=== PATIENT | female | born 1995 | race Caucasian/White ===

== ENCOUNTER 2016-11-20 17:58 | Emergency (ER) | payer BC ==
[~2016-11-20] VITALS: Ht 154.9 cm; Wt 62.3 kg
[2016-11-20 19:19] LABS: BASOPHILS % (AUTO) 0 % (0-2); EOSINOPHILS # (AUTO) 0.5 10^3uL; EOSINOPHILS % (AUTO) 6 % (0-4); LYMPHOCYTES # (AUTO) 2.8 X10^3; MEAN CORPUSCULAR HEMOGLOBIN 30.6 PG (26.0-34.0); MEAN CORPUSCULAR HGB CONC 35.3 g/dL (31.0-37.0); MEAN CORPUSCULAR VOLUME 87 FL (80-100); MEAN PLATELET VOLUME 7.9 FL (6.0-9.5); MONOCYTES # (AUTO) 0.8 X10^3; MONOCYTES % (AUTO) 9 % (3-11); NEUTROPHILS # (AUTO) 4.7 X10^3; NEUTROPHILS % (AUTO) 53 % (51-67); PLATELET COUNT 245 10^3uL (150-450); WHITE BLOOD COUNT 8.86 10^3uL (4.0-11.0)
[2016-11-20 19:36] LABS: ALBUMIN 4.3 g/dL (3.4-5.0); ANION GAP 11.3 MEQ/L (3-15); TOTAL PROTEIN 6.9 g/dL (6.4-8.5)
[2016-11-20 20:53] VITALS: BP 109/62
== END 2016-11-20 20:55 | disposition home or self-care (01) ==
LOC: ED 18:00
DX: R55 Syncope and collapse (principal); E87.1 Hypo-osmolality and hyponatremia; E23.2 Diabetes insipidus
CPT/HCPCS: 36415; 80053; 84703; 85025; 99282

== ENCOUNTER 2016-11-22 10:28 | Emergency (ER) | payer BC ==
[~2016-11-22] VITALS: Ht 157.5 cm; Wt 66.3 kg
[~2016-11-22 10:28] MED LIST: AZIT500T2 PO; CPR500T PO; FLUO20CA42 PO; GFCD10B GT; HYDR-87 PO; MECL25TA PO; NF-DDA0.2T PO; PHEN-725 PO; [UNRECOGNIZED DRUG - CODE]
--- OUTSIDE RECORDS SUMMARY | 2016-11-22 10:36 | XMS REPORT | Continuity of Care Document ---
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 Phone [employer] Unavailable Unavailable Problems Problem Status Onset Date Classification Date Reported Comments Source No current problems or disability (context-dependent category) Active Problem 10/27/2015 [facility] Medications Medication Details Route Status Patient Instructions Ordering Provider Order Date Source desmopressin 0.2 mg oral tablet See Instructions, TAKE 4 TABLETS IN THE AM AND 4 TABLETS IN THE PM, # 720 tablet, Refill(s) 6, Pharmacy: [facility] </br>TAKE 4 TABLETS IN THE AM AND 4 TABLETS IN THE PM [facility] normal saline 250 mL 10/26/15 8:21:00 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, 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 [facility], Routine, IV, 250 mL Total Volume, rate=10 mL/hrMED ID: [id number] [facility] normal saline fluid bolus 10/26/15 8:21:00 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, ENDO [facility], Routine, 1,000 mL Total Volume, infuse over 0 hr(s), 1,000 mL , IV, IV Soln, Unscheduled, PRN Other (see comment)MED ID: [id number] [facility] naproxen 375 mg oral tablet 375 mg, PO, BID, prn during migranes </br>prn during migranes [facility] Topamax 25 mg oral tablet 50 mg=2 tablet, PO, qPM, # 60 tablet, Refill(s) 5, Pharmacy: [facility], [place]. [facility] ethinyl estradiol-norethindrone triphasic 20 mcg-30 mcg-35 mcg oral tablet 1 tablet, PO, qDay, take 21 days of active tablets then skip placebos and start the next pack, # 168 tablet, Refill(s) 2, Pharmacy: [facility] </br>take 21 days of active tablets then skip placebos and start the next pack Active [facility] Compazine 5 mg oral tablet 5 mg, PO, q8h, PRN Headache , # 30 tablet, Refill(s) 3, Pharmacy: [facility] [place]. [facility] sertraline 25 mg oral tablet daily, Refill(s) 0 [facility] Prilosec 40 mg oral delayed release capsule daily, Refill(s) 0 [facility] Allergies, Adverse Reactions, Alerts Substance Category Reaction Severity Reaction type Status Date Reported Comments Source penicillins drug allergy hives Allergy [facility] Immunizations Immunization Date Given Site Status Last Updated Comments Source Immunization - Patient Refused 09/19/2015 completed [facility] Results Order Name Results Value Reference Range Date Interpretation Comments Source GH 120m Growth Hormone 120 Min 2.2 ng/mL 10/26/2015 [facility] GH 60m Growth Hormone 60 Min 0.2 ng/mL 10/26/2015 [facility] GH 180m Growth Hormone 180 Min 1.8 ng/mL 10/26/2015 [facility] GH 150m Growth Hormone 150 Min 3.8 ng/mL 10/26/2015 [facility] Gage 0 Gl Cortisol 0 Min Glucagon Stim 6.5 mcg/dL >=1.1 10/26/2015 [facility] GH 0m Growth Hormone 0 Min 0.2 ng/mL 10/26/2015 [facility] Glu 180m Glucose 180 Min 75 mg/dL 10/26/2015 [facility] Glu 150m Glucose 150 Min 79 mg/dL 10/26/2015 [facility] Glu 120m Glucose 120 Min 62 mg/dL 10/26/2015 [facility] Glu 60m Glucose 60 Min 92 mg/ dL 10/26/2015 [facility] Glu 0m Glucose 0 Min 86 mg/ dL 10/26/2015 [facility] IGF1 IGF-1 63 ng/mL 148 - 516 09/19/2015 LOW IGF-1 [facility] Stage Reference Ranges Female [place] Stage Median Range I 159 49-342 II 269 115-428 III 412 145-760 IV 504 244-787 V 408 143-859 Male [place] Stage Median Range I 152 63-279 II 190 75-420 III 406 94-765 IV 577 192-861 V 422 171-814 [facility] T4 Free T4 Free 1.1 ng/dL 0.8 - 1.9 09/19/2015 [facility] TSH TSH 1.23 mcIU/mL 0.35 - 5.50 09/19/2015 [facility] Gage Cortisol 5.0 mcg/dL >=1.1 09/19/2015 Reference Ranges: AM Collection: 7-25 mcg/dL PM Collection: 2-9 mcg/dL [facility] Osmol Osmolality 284 mOsm/kg 275 - 296 09/19/2015 [facility] BasMet Sodium 140 mmol/L 135 - 145 09/19/2015 [facility] Hgb A1c Hemoglobin A1c 5.3 % 4.0 - 6.0 09/19/2015 [facility] T4 Free T4 Free 1.1 ng/dL 0.8 - 1.9 08/24/2014 [facility] TSH TSH 2.30 mcIU/mL 0.35 - 5.50 08/24/2014 [facility] Gage Cortisol 12.3 mcg/dL 08/24/2014 NA Reference Ranges: AM Collection: 7-25 mcg/dL PM Collection: 2-9 mcg/dL [facility] Osmol Osmolality 282 mOsm/kg 275 - 296 08/24/2014 [facility] BasMet Sodium 139 mmol/L 135 - 145 08/24/2014 [facility] Vital Signs Vital Sign Value Date Comments Source Height/Length 158.2 cm 2015 [facility] Systolic Blood Pressure Cuff Monitored <content ID=' [id number]'>109</content>/<content ID='[id number]'>58</content> mm[Hg ] 10/26/2015 [facility] Heart Rate 56 bpm 10/26/2015 [facility] Current Weight 62.1 kg 2015 [facility] Systolic Blood Pressure Cuff Monitored <content ID=' [id number]'>119</content>/<content ID='[id number]'>63</content> mm[Hg ] 09/19/2015 [facility] Heart Rate 69 bpm 09/19/2015 [facility] Height/Length 158.0 cm 2015 [facility] Current Weight 64.3 kg 2015 [facility] Encounters Location Location Details Encounter Type Encounter Number Reason For Visit Attending Provider ADM Date DC Date Status Source CMB CMB REF [id number] F/U milindpojedt Fuad Carrasco 04/21/2013 04/21/2013 [facility] CMB CMB REF [id number] labs rohit Carrasco 04/21/2013 [facility] CMB CMB REF [id number] f/u milindpoalan Carrasco 08/24/2014 08/24/2014 [facility] CMB CMB REF [id number] Labs Elmer Browning 08/24/2014 [facility] CMB CMB CLI [id number] Fuad Carrasco 09/19/2015 09/19/2015 [facility] CMB CMB CLI [id number] Eden Chaobukvng 10/26/20152015 [facility] Procedures Plan of Care Social History Assessment and Plan Family History Value Date Source Advance Directives Order Name Results Value Date Source
[2016-11-22 10:57] LABS: BASOPHILS % (AUTO) 0 % (0-2); EOSINOPHILS # (AUTO) 0.3 10^3uL; EOSINOPHILS % (AUTO) 4 % (0-4); LYMPHOCYTES # (AUTO) 2.8 X10^3; MEAN CORPUSCULAR HEMOGLOBIN 30.4 PG (26.0-34.0); MEAN CORPUSCULAR VOLUME 86 FL (80-100); MEAN PLATELET VOLUME 7.8 FL (6.0-9.5); MONOCYTES # (AUTO) 0.6 X10^3; MONOCYTES % (AUTO) 8 % (3-11); NEUTROPHILS # (AUTO) 4.2 X10^3; NEUTROPHILS % (AUTO) 53 % (51-67); PLATELET COUNT 241 10^3uL (150-450); WHITE BLOOD COUNT 7.88 10^3uL (4.0-11.0)
[2016-11-22 11:05] LABS: ALBUMIN 4.1 g/dL (3.4-5.0); ANION GAP 9.8 MEQ/L (3-15); CALCULATED IONIZED CALCIUM 3.8 mg/dL (3.8-4.6); TOTAL PROTEIN 6.6 g/dL (6.4-8.5)
--- NOTE | 2016-11-22 11:05 | NUR ---
PT SODIUM CALLED TO THIS RN & REPORTED TO DR BOJORQUEZ. CL
--- NOTE | 2016-11-22 11:05 | NUR ---
DR BOJORQUEZ CALLS PT SPECIALIST . CL
[2016-11-22 11:21] LABS: MEAN CORPUSCULAR HGB CONC 35.6 g/dL (31.0-37.0)
[2016-11-22 11:35] VITALS: BP 106/54
== END 2016-11-22 11:36 | disposition home or self-care (01) ==
LOC: EDUNIT# 10:28 → ED 10:31
DX: E87.1 Hypo-osmolality and hyponatremia (principal); E23.2 Diabetes insipidus
CPT/HCPCS: 36415; 80053; 85025; 99282; 99283

== ENCOUNTER 2016-12-26 05:58 | Emergency (ER) | payer BC ==
[~2016-12-26] VITALS: Ht 157.5 cm; Wt 64.0 kg
--- OUTSIDE RECORDS SUMMARY | 2016-12-26 06:05 | XMS REPORT | Continuity of Care Document ---
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 Phone [employer] Unavailable Unavailable Problems Problem Status Onset Date Classification Date Reported Comments Source No current problems or disability (context-dependent category) Active Problem 10/27/2015 [facility] Medications Medication Details Route Status Patient Instructions Ordering Provider Order Date Source desmopressin 0.2 mg oral tablet See Instructions, TAKE 4 TABLETS IN THE AM AND 4 TABLETS IN THE PM, # 720 tablet, Refill(s) 6, Pharmacy: [facility] </br>TAKE 4 TABLETS IN THE AM AND 4 TABLETS IN THE PM [facility] normal saline 250 mL 10/26/15 8:21:00 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 [facility] ethinyl estradiol-norethindrone triphasic 20 mcg-30 mcg-35 mcg oral tablet 1 tablet, PO, qDay, take 21 days of active tablets then skip placebos and start the next pack, # 168 tablet, Refill(s) 2, Pharmacy: [facility] </br>take 21 days of active tablets then skip placebos and start the next pack Active [facility] Compazine 5 mg oral tablet 5 mg, PO, q8h, PRN Headache , # 30 tablet, Refill(s) 3, Pharmacy: [facility] [place]. [facility] sertraline 25 mg oral tablet daily, Refill(s) 0 [facility] Prilosec 40 mg oral delayed release capsule daily, Refill(s) 0 [facility] Allergies, Adverse Reactions, Alerts Substance Category Reaction Severity Reaction type Status Date Reported Comments Source penicillins drug allergy hives Allergy [facility] Immunizations Immunization Date Given Site Status Last Updated Comments Source Immunization - Patient Refused 09/19/[address] [facility] Results Order Name Results Value Reference Range Date Interpretation Comments Source GH 120m Growth Hormone 120 Min 2.2 ng/mL 10/26/2015 [facility] GH 60m Growth Hormone 60 Min 0.2 ng/mL 10/26/2015 [facility] GH 180m Growth Hormone 180 Min 1.8 ng/mL 10/26/2015 [facility] GH 150m Growth Hormone 150 Min 3.8 ng/mL 10/26/2015 [facility] Gage 0 Gl Cortisol 0 Min Glucagon Stim 6.5 mcg/dL >=1.1 10/26/2015 [facility] GH 0m Growth Hormone 0 Min 0.2 ng/mL 10/26/2015 [facility] Glu 180m Glucose 180 Min 75 mg/dL 10/26/2015 [facility] Glu 150m Glucose 150 Min 79 mg/dL 10/26/2015 [facility] Glu 120m Glucose 120 Min 62 mg/dL 10/26/2015 [facility] Glu 60m Glucose 60 Min 92 mg/ dL 10/26/2015 [facility] Glu 0m Glucose 0 Min 86 mg/ dL 10/26/2015 [facility] IGF1 IGF-1 63 ng/mL 148 - 516 09/19/2015 LOW IGF-1 [facility] Reference Ranges Female [place] Stage Median Range I 159 49-342 II 269 115-428 III 412 145-760 IV 504 244-787 V 408 143-859 Male [place] [facility] Median Range I 152 63-279 II 190 75-420 III 406 94-765 IV 577 192-861 V [phone] [facility] T4 Free T4 Free 1.1 ng/dL 0.8 - 1.9 09/19/2015 [facility] TSH TSH 1.23 mcIU/mL 0.35 - 5.50 09/19/2015 [facility] Gage Cortisol 5.0 mcg/dL >=1.1 09/19/2015 Reference Ranges: AM Collection: 7-25 mcg/dL PM Collection: 2-9 mcg/dL [facility] Osmol Osmolality 284 mOsm/kg 275 - 296 09/19/2015 [facility] BasMet Sodium 140 mmol/L 135 - 145 09/19/2015 [facility] Hgb A1c Hemoglobin A1c 5.3 % 4.0 - 6.0 09/19/2015 [facility] T4 Free T4 Free 1.1 ng/dL 0.8 - 1.9 08/24/2014 [facility] TSH TSH 2.30 mcIU/mL 0.35 - 5.50 08/24/2014 [facility] Gage Cortisol 12.3 mcg/dL 08/24/2014 NA Reference Ranges: AM Collection: 7-25 mcg/dL PM Collection: 2-9 mcg/dL [facility] Osmol Osmolality 282 mOsm/kg 275 - 296 08/24/2014 [facility] BasMet Sodium 139 mmol/L 135 - 145 08/24/2014 [facility] Vital Signs Vital Sign Value Date Comments Source Height/Length 158.2 cm 2015 [facility] Systolic Blood Pressure Cuff Monitored <content ID=' [id number]'>109</content>/<content ID='[id number]'>58</content> mm[Hg ] 10/26/2015 [facility] Heart Rate 56 bpm 10/26/2015 [facility] Current Weight 62.1 kg 2015 [facility] Systolic Blood Pressure Cuff Monitored <content ID=' [id number]'>119</content>/<content ID='[id number]'>63</content> mm[Hg ] 09/19/2015 [facility] Heart Rate 69 bpm 09/19/2015 [facility] Height/Length 158.0 cm 2015 [facility] Current Weight 64.3 kg 2015 [facility] Encounters Location Location Details Encounter Type Encounter Number Reason For Visit Attending Provider ADM Date DC Date Status Source CMB CMB REF [id number] F/U milindpojedt Fuad Carrasco 04/21/2013 04/21/2013 [facility] CMB CMB REF [id number] labs rohit Carrasco 04/21/2013 [facility] CMB CMB REF [id number] f/u milindpoalan Carrasco 08/24/2014 08/24/2014 [facility] CMB CMB REF [id number] Labs Elmer Browning 08/24/2014 [facility] CMB CMB CLI [id number] Fuad Carrasco 09/19/2015 09/19/2015 [facility] CMB CMB CLI [id number] Eden Chaobukvng 10/26/20152015 [facility] Procedures Plan of Care Social History Assessment and Plan Family History Value Date Source Advance Directives Order Name Results Value Date Source
[2016-12-26] MEDS ORDERED: DESM10SP6 NS (06:15)
[2016-12-26] MEDS ORDERED: FLUORESCEIN (FLUOR-I-STRIPS) 1 MG STRIP OD ONE (06:20)
[2016-12-26] MEDS ORDERED: TBR.3OP51 OU (06:55)
[2016-12-26 07:02] VITALS: BP 122/74
== END 2016-12-26 07:00 | disposition home or self-care (01) ==
LOC: EDUNIT# 05:58 → ED 06:00
DX: H00.011 Hordeolum externum right upper eyelid (principal)
CPT/HCPCS: 99282; 99283